=== PATIENT | male | born 1975 | race Caucasian/White ===

== ENCOUNTER 2018-08-28 18:13 | Emergency (ER) | payer MEDICAID, SELFPAY ==
[~2018-08-28] VITALS: Ht 170.2 cm; Wt 86.4 kg
[~2018-08-28 18:13] MED LIST: NO MEDS
[2018-08-28 18:14] VITALS: BP 139/78
[2018-08-28] MEDS ORDERED: LIDOCAINE 1% 10 ML VIAL INJ ONE (19:15)
[2018-08-28] MEDS ORDERED: CefTRIAXone SODIUM 1 GM/VIAL IM ONE (19:45)
[2018-08-28] MEDS ORDERED: IBUPROFEN 600 MG TABLET PO ONE (19:45)
[2018-08-28] MEDS ORDERED: ACETAMINOPHEN 325 MG TABLET PO ONE (19:45)
[2018-08-28] MEDS ORDERED: LIDOCAINE 1% 10 ML VIAL IM ONE (20:15)
== END 2018-08-28 20:49 | disposition home or self-care (01) ==
LOC: EMS 18:15
DX: L02.415 Cutaneous abscess of right lower limb (principal); L03.115 Cellulitis of right lower limb; F11.90 Opioid use, unspecified, uncomplicated; F12.90 Cannabis use, unspecified, uncomplicated; F17.210 Nicotine dependence, cigarettes, uncomplicated
CPT/HCPCS: 10060; 96372; 99283; J0696; J3490

== ENCOUNTER 2018-08-29 19:31 | Emergency (ER) | payer MEDICAID ==
[~2018-08-29] VITALS: Ht 172.7 cm; Wt 86.4 kg
[2018-08-29 19:49] VITALS: BP 140/73
== END 2018-08-29 21:00 | disposition left against medical advice (07) ==
LOC: EMS 19:32
DX: Z48.00 Encounter for change or removal of nonsurgical wound dressing (principal); F17.210 Nicotine dependence, cigarettes, uncomplicated; F12.90 Cannabis use, unspecified, uncomplicated; F11.90 Opioid use, unspecified, uncomplicated; Z53.21 Procedure and treatment not carried out due to patient leaving prior to being seen by health care provider